=== PATIENT | female | born 1990 | race American Indian/Alaskan Native ===

== ENCOUNTER 2017-04-30 10:06 | Emergency (ER) | payer OTHER ==
[2017-04-30 10:47] VITALS: BP 119/74
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
[2017-04-30] MEDS ORDERED: MOTRIN PO ONE (14:08)
[2017-04-30] MEDS ORDERED: FLEXERIL PO ONE (14:08)
--- NOTE | 2017-04-30 14:39 | Cat Scan Report ---
CT HEAD WITHOUT CONTRAST: HISTORY: Pain. TECHNIQUE: Sequential 2.5mm CT images. COMPARISON: none. FINDINGS: Cerebral Parenchyma: Within normal limits. Cerebellum: Within normal limits. Brainstem: Within normal limits. Ventricles: Normal. Sella: Normal. Extra-axial spaces: Normal. Basal Cisterns: Normal. Intracranial Hemorrhage: None. Midline Shift: None. Calvarium: Normal. Sinuses: Normal. Mastoid Air Cells: Normal. Visualized Orbits: Normal. IMPRESSION: Cranial CT scan within normal limits.
--- NOTE | 2017-04-30 14:40 | Cat Scan Report ---
CT SCAN OF THE CERVICAL SPINE: HISTORY: Pain. TECHNIQUE: Contiguous 1.25 mm axial images of the cervical spine were obtained. Sagittal and coronal reformatted images. FINDINGS: There is normal alignment of the cervical spine. The body, pedicles and posterior ligaments appear normal. No evidence of fracture or subluxation is seen. The spinal canal appears normal. The prevertebral soft tissues appear normal. IMPRESSION: Unremarkable CT of the cervical spine. No acute process is noted.
== END 2017-04-30 15:32 | disposition home or self-care (01) ==
LOC: ED 10:06
DX: S16.1XXA Strain of muscle, fascia and tendon at neck level, initial encounter (principal); S13.4XXA Sprain of ligaments of cervical spine, initial encounter; V49.59XA Passenger injured in collision with other motor vehicles in traffic accident, initial encounter; X58.XXXA Exposure to other specified factors, initial encounter; Y93.89 Activity, other specified; Y92.89 Other specified places as the place of occurrence of the external cause; Y99.8 Other external cause status
CPT/HCPCS: 36415; 70450; 72125; 84703

== ENCOUNTER 2020-05-01 10:17 | Emergency (ER) | payer SELFPAY | END 2020-05-01 10:35 | disposition left against medical advice (07) | LOC: ED 10:17 | DX: Z00.8 Encounter for other general examination (principal); Z53.21 Procedure and treatment not carried out due to patient leaving prior to being seen by health care provider ==

== ENCOUNTER 2020-09-20 10:52 | Emergency (ER) | payer SELFPAY ==
[2020-09-20 11:40] VITALS: BP 129/66
--- NOTE | 2020-09-20 14:27 | XRay Report ---
RIGHT KNEE 3 VIEW(S) INDICATION / CLINICAL INFORMATION: right knee pain after giving out and popping COMPARISON: None available. FINDINGS: BONES / JOINT(S): No acute fracture or subluxation. No significant arthritis. SOFT TISSUES: No significant abnormality. ADDITIONAL FINDINGS: None. Signer Name: Cristi Joseph MD Signed: 09/20/2020 2:22 PM Workstation Name: [email or web address] [id number]
--- NOTE | 2020-09-20 14:36 | Emergency Department Report ---
ED Lower Extremity HPI - General Chief Complaint: Extremity Injury, Lower Stated Complaint: KNEE PAINS Time Seen by Provider: 09/20/20 12:20 Source: patient Mode of arrival: Ambulatory Limitations: No Limitations - History of Present Illness Initial Comments: Patient is a 29-year-old female presents emergency room with complaints of right knee pain that began 2 days ago. She reports that 2 days ago she felt like her right knee was going to give out and she felt a popping sensation. She states that she did not fall to the floor. She states since then she has had some right knee discomfort. She denies any prior fractures or surgeries. She is ambulatory. She denies any numbness. She has not had any further giving out of the knee. No past medical history. No allergies to medications. - Related Data Previous Rx's Medication Instructions Recorded Last Taken Type Cyclobenzaprine [Flexeril] 10 mg PO QHS PRN #20 tablet 04/30/17 Unknown Rx Ibuprofen [Motrin] 800 mg PO Q8HR PRN #30 tablet 04/30/17 Unknown Rx Naproxen [EC-Naprosyn] 500 mg PO BID PRN #14 tablet. 09/20/20 Unknown Rx Allergies Allergy/AdvReac Type Severity Reaction Status Date / Time No Known Allergies Allergy Verified 09/20/20 11:35 ED Review of Systems ROS: Stated complaint: KNEE PAINS Other details as noted in HPI Comment: All other systems reviewed and negative ED Past Medical Hx - Past Medical History Previous Medical History?: No - Surgical History Past Surgical History?: No - Social History Smoking Status: Never Smoker Substance Use Type: Alcohol - Medications Home Medications: Home Medications Medication Instructions Recorded Confirmed Last Taken Type Cyclobenzaprine [Flexeril] 10 mg PO QHS PRN #20 tablet 04/30/17 Unknown Rx Ibuprofen [Motrin] 800 mg PO Q8HR PRN #30 tablet 04/30/17 Unknown Rx Naproxen [EC-Naprosyn] 500 mg PO BID PRN #14 tablet. 09/20/20 Unknown Rx ED Physical Exam - General Limitations: No Limitations General appearance: alert, in no apparent distress - Head Head exam: Present: atraumatic, normocephalic - Eye Eye exam: Present: normal appearance - ENT ENT exam: Present: mucous membranes moist - Extremities Exam Extremities exam: Present: other (mild right anterior knee ttp, FROM of the RLE with mild discomfort upon full flexion, no edema, no ecchymosis, no deformity, no obvious joint laxity, neurovascularly intact) - Neurological Exam Neurological exam: Present: alert, oriented X3 - Psychiatric Psychiatric exam: Present: normal affect, normal mood - Skin Skin exam: Present: warm, dry, intact ED Course Vital Signs 09/20/20 11:35 Temperature 99.5 F Pulse Rate 79 Respiratory 18 Rate Blood Pressure 129/66 O2 Sat by Pulse 100 Oximetry ED Lower Extremity MDM - Radiology Data Radiology results: report reviewed Ordering Physician: JULIANNA MCFADDEN Date of Service: 09/20/20 Procedure(s): XR knee 3V RT Accession Number(s): [id number] cc: JULIANNA MCFADDEN Fluoro Time In Minutes: RIGHT KNEE 3 VIEW(S) INDICATION / CLINICAL INFORMATION: right knee pain after giving out and popping COMPARISON: None available. FINDINGS: BONES / JOINT(S): No acute fracture or subluxation. No significant arthritis. SOFT TISSUES: No significant abnormality. ADDITIONAL FINDINGS: None. Signer Name: Cristi Joseph MD Signed: 09/20/2020 2:22 PM Workstation Name: [id number] Transcribed By: Dictated By: CRISTI JOSEPH III Electronically Authenticated By: CRISTI JOSEPH III Signed Date/Time: 09/20/201421 DD/ 20 TD/TT: Print - Medical Decision Making Patient is a 29-year-old female presents emergency room with complaints of right knee pain that began 2 days ago. She reports that 2 days ago she felt like her right knee was going to give out and she felt a popping sensation. She states that she did not fall to the floor. She states since then she has had some right knee discomfort. She denies any prior fractures or surgeries. She is ambulatory. She denies any numbness. She has not had any further giving out of the knee. No past medical history. No allergies to medications. Vitals are normal. On exam:mild right anterior knee ttp, FROM of the RLE with mild discomfort upon full flexion, no edema, no ecchymosis, no deformity, no obvious joint laxity, neurovascularly intact. X-ray right knee: BONES / JOINT(S): No acute fracture or subluxation. No significant arthritis. SOFT TISSUES: No significant abnormality. ADDITIONAL FINDINGS: None. Discussed all results with patient answer questions. Symptoms likely related to knee sprain. Patient placed in Kyle wrap and given crutches by tech and remained neurovascular intact. Given prescription for naproxen. Advised patient Please take medication as prescribed as needed. May use ice for 15 minutes at a time, rest, elevation of the leg. Follow-up with orthopedic doctor. Return to emergency room for new or worsening symptoms. X-ray shows no signs of fracture or dislocation Critical care attestation.: If time is entered above; I have spent that time in minutes in the direct care of this critically ill patient, excluding procedure time. ED Disposition Clinical Impression: Right knee pain Qualifiers: Chronicity: acute Qualified Code(s): M25.561 - Pain in right knee Disposition: TO HOME OR SELFCARE Is pt being admited?: No Does the pt Need Aspirin: No Condition: Stable Instructions: Acute Knee Pain, Adult, Knee Sprain, Adult Additional Instructions: Please take medication as prescribed as needed. May use ice for 15 minutes at a time, rest, elevation of the leg. Follow-up with orthopedic doctor. Return to emergency room for new or worsening symptoms. X-ray shows no signs of fracture or dislocation Prescriptions: Naproxen [EC-Naprosyn] 500 mg PO BID PRN #14 tablet.dr HATHAWAY Reason: pain Referrals: CRISTI MONTALVO MD [Staff Physician] - 2-3 Days [facility] [Provider Group] - 2-3 Days Forms: Work/School Release Form(ED) Time of Disposition: 14:34 Print Language: AFGHAN
== END 2020-09-20 15:35 | disposition home or self-care (01) ==
LOC: ED 10:52
DX: M25.561 Pain in right knee (principal); Z72.89 Other problems related to lifestyle; Z79.899 Other long term (current) drug therapy
CPT/HCPCS: 99283